=== PATIENT | female | born 1980 | race Two or more races ===

== ENCOUNTER 2020-02-04 03:10 | Emergency (ER) | payer OTHER ==
[~2020-02-04] VITALS: Ht 165.1 cm; Wt 81.4 kg
--- NOTE | 2020-02-04 03:30 | NUR ---
PT REPORTS VAGINAL BLEEDING X2 DAYS, PT STATES SHE IS .
[2020-02-04 03:38] LABS: BASOPHILS % (AUTO) 1 % (0-1); EOSINOPHILS # (AUTO) 0.27 x10^3/uL (0-0.4); EOSINOPHILS % (AUTO) 2 % (1-7); LYMPHOCYTES # (AUTO) 2.94 x10^3/uL (1-3.4); LYMPHOCYTES % (AUTO) 26 % (22-44); MD NO; MEAN CORPUSCULAR HEMOGLOBIN 30.1 pg (27.0-34.8); MEAN CORPUSCULAR HGB CONC 33.5 g/dL (32.4-35.8); MEAN CORPUSCULAR VOLUME 90.1 fL (80-100); MEAN PLATELET VOLUME 9.1 fL (7.4-10.4); MONOCYTES # (AUTO) 0.58 x10^3/uL (0.2-0.8); MONOCYTES % (AUTO) 5 % (2-9); NEUTROPHILS # (AUTO) 7.45 x10^3/uL (1.8-6.8); NEUTROPHILS % (AUTO) 66 % (42-75); PLATELET COUNT 264 x10^3/uL (130-400); RED CELL DISTRIBUTION WIDTH 14.1 % (9.6-15.2)
[2020-02-04 03:47] LABS: ANION GAP 7 mmol/L (5-15); CALCIUM 9.2 mg/dL (8.5-10.1); CHLORIDE 108 mmol/L (98-107); CREATININE 0.78 mg/dL (0.55-1.02)
--- NOTE | 2020-02-04 04:34 | NUR ---
URINE SAMPLE COLLECTED.
[2020-02-04 04:50] LABS: MICROSCOPIC INDICATED
[2020-02-04] MEDS ORDERED: HYDROcodone/APAP 5/325 TABLET ONE (05:06)
--- NOTE | 2020-02-04 05:08 | NUR ---
MEDICATED PER MAR.
[2020-02-04 05:09] VITALS: BP 107/68
[2020-02-04] MEDS ORDERED: HYDROcodone/APAP 5/325 TABLET PO ONE (05:30)
== END 2020-02-04 05:27 | disposition home or self-care (01) ==
LOC: EDBD 03:10 → ED 05:10
DX: O03.4 Incomplete spontaneous abortion without complication (principal)
CPT/HCPCS: 36415; 76815; 80048; 81001; 82040; 84702; 85025; 86901; 99284